=== PATIENT | female | born 1980 | race Asian ===

== ENCOUNTER 2016-12-27 18:37 | Emergency (ER) | payer OTHER ==
[~2016-12-27 18:37] MED LIST: NAPR500T3 PO; OXYC-323 PO
[2016-12-27] MEDS ORDERED: KETOROLAC TROMETHAMINE 30 MG/ML INJ. IV ONE (20:45)
[2016-12-27] MEDS ORDERED: CONTRAST GIVEN MC PRN (20:45)
[2016-12-27] MEDS ORDERED: IOHEXOL 300 MG/ML 75 ML VIAL IV ONE (21:00)
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
[2016-12-27 22:30] VITALS: BP 122/71
[2016-12-28] MEDS ORDERED: CYCL10TA2 PO (12:06)
== END 2016-12-27 23:05 | disposition home or self-care (01) ==
LOC: ER 18:37
DX: S39.011A Strain of muscle, fascia and tendon of abdomen, initial encounter (principal); S46.811A Strain of other muscles, fascia and tendons at shoulder and upper arm level, right arm, initial encounter; Z90.49 Acquired absence of other specified parts of digestive tract; Z98.890 Other specified postprocedural states; Z98.51 Tubal ligation status; V49.88XA Car occupant (driver) (passenger) injured in other specified transport accidents, initial encounter; Y93.89 Activity, other specified; Y99.8 Other external cause status; Y92.488 Other paved roadways as the place of occurrence of the external cause
CPT/HCPCS: 74177; 81025; 96374; 99284; J1885; Q9967

== ENCOUNTER 2016-12-28 11:20 | Emergency (ER) | payer OTHER ==
[~2016-12-28] VITALS: Ht 157.5 cm; Wt 70.3 kg
[2016-12-28] MEDS ORDERED: CYCL10TA2 PO (12:06)
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
[2016-12-28 12:09] VITALS: BP 158/98
[2016-12-28] MEDS ORDERED: IBUPROFEN 800 MG TABLET. PO ONE (12:15)
[2016-12-28] MEDS ORDERED: CYCLOBENZAPRINE 10 MG TABLET. PO ONE (12:15)
== END 2016-12-28 12:09 | disposition home or self-care (01) ==
LOC: ER 11:20
DX: M54.6 Pain in thoracic spine (principal); M54.5 Low back pain; R20.0 Anesthesia of skin; Z98.51 Tubal ligation status; Z98.890 Other specified postprocedural states; Z90.49 Acquired absence of other specified parts of digestive tract; V49.59XA Passenger injured in collision with other motor vehicles in traffic accident, initial encounter; Y93.9 Activity, unspecified; Y99.8 Other external cause status; Y92.488 Other paved roadways as the place of occurrence of the external cause
CPT/HCPCS: 99283

== ENCOUNTER → 2017-01-24 | Outpatient (CLI) | payer OTHER ==
[2016-12-28 12:09] VITALS: BP 158/98
[~2017-01-24] MED LIST changes: +CYCL10TA2 PO
--- NOTE | 2017-01-24 12:28 | RAD ---
Indication pain. Internally and externally rotated views of the right shoulder were obtained as well as a Y view. No bony abnormality is seen
--- NOTE | 2017-01-24 12:30 | RAD ---
Indication mid back pain for approximately a month. AP and lateral views of the thoracic spine were obtained as well as a swimmer's view. No bony abnormality is seen
--- NOTE | 2017-01-24 12:32 | RAD ---
Indication pain. AP oblique and lateral views of the cervical spine were obtained as well as an odontoid view. C1-C7 are identified. No bony abnormality is seen. No acute finding is apparent. There are no significant degenerative changes in the prevertebral soft tissues appear normal. IMPRESSION: Normal plain films of the cervical spine
== END | disposition home or self-care (01) ==
LOC: RAD 11:10
PROVIDERS: ATTEND Family Medicine
DX: M54.2 Cervicalgia (principal); M25.511 Pain in right shoulder; M54.6 Pain in thoracic spine
CPT/HCPCS: 72050; 72072; 73030

== ENCOUNTER → 2017-01-31 | Outpatient (CLI) | payer OTHER ==
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
== END | disposition home or self-care (01) ==
LOC: RAD 12:40
PROVIDERS: ATTEND Family Medicine
DX: M25.511 Pain in right shoulder (principal); V49.9XXA Car occupant (driver) (passenger) injured in unspecified traffic accident, initial encounter
CPT/HCPCS: 73000

== ENCOUNTER → 2017-06-23 | Outpatient (CLI) | payer OTHER | END | disposition home or self-care (01) | LOC: KCIC CT 11:10 | DX: M41.82 Other forms of scoliosis, cervical region (principal); M25.511 Pain in right shoulder; M25.512 Pain in left shoulder; R20.0 Anesthesia of skin; R20.2 Paresthesia of skin; V89.2XXD Person injured in unspecified motor-vehicle accident, traffic, subsequent encounter | CPT/HCPCS: 72125 ==